=== PATIENT | female | born 1980 | race Two or more races ===

== ENCOUNTER 2024-05-29 08:02 | Emergency (ER) | payer MEDICAID, SELFPAY ==
--- NOTE | 2024-05-29 08:04 | PD.EDURI ---
Upper Respiratory Inf. RME/HPI General Chief Complaint: Flu Like Symptoms Stated Complaint: COUGH, CONGESTION, N/V, DIARRHEA Time Seen by Provider: 05/29/24 08:04 Arrival date/time: 05/29/24 08:02 44-year old female presents emergency department complains of cough, congestion, body aches and fever as well as nausea vomiting diarrhea symptoms ongoing for last few days patient has multiple sick contacts who tested positive for flu Limitations: no limitations Related Data Home Medications ?Medication ?Instructions ?Recorded ?Confirmed Vitamin * 1 tab PO QDAY #0 tabs 06/02/17 08/18/17 docusate sodium 100 mg capsule 100 mg PO QDAY 08/18/17 08/18/17 (Colace) ferrous sulfate 325 mg (65 mg 325 mg PO BID 08/18/17 08/18/17 iron) tablet (iron) ranitidine HCl 150 mg tablet 150 mg PO QDAY 08/18/17 08/18/17 (Zantac) Previous Rx's ?Medication ?Instructions ?Recorded simethicone 80 mg chewable tablet 80 mg PO QDAY PRN abdominal 08/27/17 distention #20 tabs acetaminophen 650 mg 650 mg PO Q8H #60 tabs 06/21/18 tablet,extended release albuterol sulfate 90 mcg/actuation 2 puff inhalation Q4H PRN 06/21/18 aerosol inhaler shortness of breath or wheezing #18 grams ibuprofen 600 mg tablet 600 mg PO Q6H #60 tabs 06/21/18 ondansetron 4 mg disintegrating 4 mg PO Q6H #14 tabs 06/21/18 tablet promethazine-DM 6.25 mg-15 mg/5 mL 10 ml PO Q6H PRN cough #240 mL 06/21/18 oral syrup azithromycin 500 mg tablet See Rx Instructions PO .COMPLEX #6 10/22/21 tabs ibuprofen 800 mg tablet 800 mg PO TID PRN pain #30 tabs 10/22/21 benzonatate 100 mg capsule 100 mg PO TID #14 caps 05/29/24 ibuprofen 800 mg tablet 800 mg PO TID PRN pain #30 tabs 05/29/24 loperamide 2 mg capsule (Imodium 2 mg PO Q6H PRN loose stool #14 05/29/24 A-D) caps ondansetron 4 mg disintegrating 4 mg PO Q8H PRN nausea and 05/29/24 tablet vomiting #10 tabs oseltamivir 75 mg capsule (Tamiflu) 75 mg PO BID 5 days #10 caps 05/29/24 Allergies Allergy/AdvReac Type Severity Reaction Status Date / Time No Known Allergies Allergy Verified 10/22/21 10:54 Review of Systems Review of Systems Systems Reviewed: All systems reviewed, normal except as documented Constitutional Constitutional: Reports system reviewed and no additional complaints, except as documented, Reports body ache(s), Reports fatigue, Reports fever(s) and Reports headache(s) Eyes Eyes: Reports system reviewed and no additional complaints, except as documented and Denies blurry vision ENT Ears, Nose, Mouth, and Throat: Reports system reviewed and no additional complaints, except as documented, Reports headache(s), Reports nasal congestion and Reports nasal discharge Cardiovascular Cardiovascular: Reports system reviewed and no additional complaints, except as documented, Denies chest pain and Denies dyspnea Respiratory Respiratory: Reports system reviewed and no additional complaints, except as documented, Reports chest congestion, Reports cough and Denies dyspnea Gastrointestinal Gastrointestinal: Reports system reviewed and no additional complaints, except as documented, Denies abdominal pain, Reports loose stools and Reports vomiting Integumentary/Breasts Skin/Breast: Reports system reviewed and no additional complaints, except as documented and Denies rash Neurologic Neurologic: Reports system reviewed and no additional complaints, except as documented, Reports as per HPI and Reports headache(s) Endocrine Endocrine: Reports fatigue Past Medical History Past Medical History NEUROLOGIC: Negative Neurological Disorders or Seizures CARDIAC: Negative Cardiac Disorders or Congestive Heart Failure RESPIRATORY: Negative Chronic Obstructive Pulmonary Disease (COPD) or Bronchitis GASTROINTESTINAL: Positive Gall Bladder Disease; Negative Gastrointestinal Disorders, Hepatitis or Colorectal Cancer GENITOURINARY: Negative Genitourinary Disorders, Renal Disease or Prostate Cancer REPRODUCTIVE: Negative Breast Cancer or Testicular Cancer MUSCULOSKELETAL: Negative Musculoskeletal Disorders or Bone Cancer ENDOCRINE: Negative Endocrine Disorders, Diabetes Mellitus Type 1 or Diabetes Mellitus Type 2 HEMATOLOGIC: Positive Blood Disorders and Anemia; Negative Leukemia, Hemophilia, Thalassemia, Sickle Cell Disease or Clotting Problems OTHER HISTORY: Positive Blood Transfusions and Chicken Pox; Negative Autoimmune Disease, Blood Transfusion Reaction, Anesthesia Reactions, Organ Transplant, Chemotherapy, Radiation Therapy, Hyperbaric Therapy, MRSA, VRSA, Vancomycin-Resistant Enterococci, Human Immunodeficiency Virus (HIV), Measles, Mumps, Rubella (Armenian Measles), Pertussis, Clostridium Difficile, Breast Cancer, Cervical Cancer, Colorectal Cancer, Lung Cancer, Ovarian Cancer, Prostate Cancer or Testicular Cancer Family History FAMILY HISTORY: Positive Family Cardiac Disorders (PATERNAL FAMILY) and Family Cancer (MATERNAL GRANDMOTHER AND AUNT, UTERINE AND STOMACH CANCER); Negative Family Psychiatric Problems, Family Respiratory Disorders, Family Gastrointestinal Problems, Family Surgery or Family Anesthesia Reaction Surgical History SURGICAL: Positive Abdominal Surgery and Section (X2 2013, 2016); Negative Cardiac Surgery, Endocrine Surgery, Ear Surgery, Nephrectomy, Joint Replacement, Neurologic Surgery, Mastectomy or Organ Transplant Social History SMOKING STATUS: Never smoker SECOND HAND EXPOSURE: No ED Exam General Limitations: Present no limitations General appearance: Present alert and in no apparent distress Head Head exam: Present atraumatic, normocephalic and normal inspection Eye Eye exam: Present normal appearance, PERRL and EOMI; Absent conjunctival injection ENT ENT exam: Present normal exam, normal oropharynx and mucous membranes moist Neck Neck exam: Present normal inspection, full ROM and trachea midline Chest Chest inspection: Present normal inspection and symmetric chest wall rise Respiratory Respiratory exam: Present normal lung sounds bilaterally Cardiovascular Cardiovascular exam: Present regular rate, normal rhythm and normal heart sounds Abdominal Exam Abdominal exam: Present soft and normal bowel sounds; Absent distention, tenderness, guarding, rebound, rigidity, Saba's sign or tenderness at McBurney's Point Abdominal tenderness: Absent RUQ or RLQ Extremities Exam Extremities exam: Present normal inspection and full ROM Back Exam Back exam: Present normal inspection and full ROM Neurological Exam Neurological exam: Present alert, oriented X3 and CN II-XII intact Psychiatric Psychiatric exam: Present normal affect and normal mood Skin Skin exam: Present warm, dry, intact and normal color Course Quality Measures none Orders Category Date Time Status Bedside Influenza A&B Antigen Test NOW Care 05/29/24 08:06 Completed Ibuprofen Tab [Motrin Tab] Med 05/29/24 08:11 Discontinued 800 mg PO X1 ONE Loperamide [Imodium] Med 05/29/24 08:05 Discontinued 4 mg PO X1 ONE Ondansetron Odt [Zofran Odt] Med 05/29/24 08:05 Discontinued 4 mg PO X1 ONE Vital Signs Vital signs: Vital Signs Temperature 101.5 F H 05/29/24 08:11 Pulse Rate 116 H 05/29/24 08:11 Respiratory Rate 20 05/29/24 08:11 Blood Pressure 108/77 05/29/24 08:11 Pulse Oximetry (%) 96 05/29/24 08:11 Oxygen Delivery Method Room Air 05/29/24 08:11 O2 saturation 98% room air within normal Upper Respiratory Infection MDM Narrative MDM Narrative:: 44-year old female presents emergency department complains of cough, congestion, body aches and fever as well as nausea vomiting diarrhea symptoms ongoing for last few days patient has multiple sick contacts who tested positive for flu On exam patient does not appear ill or toxic patient reports no significant medical problems Patient symptoms highly consistent with viral illness I suspect patient has flu Patient checked for influenza Patient tested positive for influenza Patient discharged home in no distress to follow-up with primary care doctor in the next 24 to 48 hours and for any worsening symptoms to return to the ER immediately Patient data External records reviewed:: [facility] previous records Clinical information provided by:: patient Social determinants that could affect healthcare access:: none Patient has the following chronic illnesses:: See history How is presenting disease/condition affected by chronic disease/condition?: uneffected by Evaluation data The following diagnostics were reviewed and interpreted by me:: lab results Lab and/or radiology exams considered but not ordered:: Lab obtain Interpretation Summary: Reviewed by me Medications / Prescriptions Medications or Prescriptions considered but not ordered:: Given Medication administrations:: Medication Administration History Discontinued Medications Ibuprofen (Ibuprofen Tab 400 Mg Tablet) 800 mg PO X1 ONE Stop: 05/29/24 08:12 Last Admin: 05/29/24 08:36 Dose: 800 mg Documented By: XIN Loperamide HCl (Loperamide 2 Mg Capsule) 4 mg PO X1 ONE Stop: 05/29/24 08:06 Last Admin: 05/29/24 08:36 Dose: 4 mg Documented By: XIN Ondansetron HCl (Ondansetron Odt 4 Mg Tabrap) 4 mg PO X1 ONE; Protocol Stop: 05/29/24 08:06 Last Admin: 05/29/24 08:36 Dose: 4 mg Documented By: XIN Given Consultations Consultation(s) initiated? (list below): No Diagnosis Upper Respiratory Differential Diagnosis: upper respiratory infection, sinusitis, viral infection, bronchitis and pharyngitis Most likely diagnosis given after review of the tests above:: Influenza Admission Indicated Admission indicated?: not indicated Admission Request Was there a request for admission?: No Disposition Plan Disposition Plan: Discharge Discharge Attestation Discharge Attestation: The patient and all family members were given an opportunity to ask questions and understood the discharge instructions. Discharge instructions specifically effects, indications for sooner follow up or return to the emergency department, and the expected course of current diagnosis. Patient condition: Stable Discharge Plan Plan Patient Disposition: HOME (Self Care) Disposition Comment: Stable Prescriptions/Referrals Prescriptions/Med Rec: New loperamide [Imodium A-D] 2 mg capsule 2 mg PO Q6H PRN (Reason: loose stool) Qty: 14 0RF ibuprofen 800 mg tablet 800 mg PO TID PRN (Reason: pain) Qty: 30 0RF benzonatate 100 mg capsule 100 mg PO TID Qty: 14 0RF ondansetron 4 mg tablet,disintegrating 4 mg PO Q8H PRN (Reason: nausea and vomiting) Qty: 10 0RF oseltamivir [Tamiflu] 75 mg capsule 75 mg PO BID 5 Days Qty: 10 0RF No Action Vitamin * 1 EACH tablet 1 tab PO QDAY Qty: 0 ferrous sulfate [iron] 325 mg (65 mg iron) Tablet 325 mg PO BID ranitidine HCl [Zantac] 150 mg Tablet 150 mg PO QDAY docusate sodium [Colace] 100 mg Capsule 100 mg PO QDAY simethicone 80 mg tablet,chewable 80 mg PO QDAY PRN (Reason: abdominal distention) Qty: 20 0RF promethazine-DM 6.25-15 mg/5 mL syrup 10 ml PO Q6H PRN (Reason: cough) Qty: 240 0RF acetaminophen 650 mg tablet extended release 650 mg PO Q8H Qty: 60 0RF Rx Instructions: swallow whole; do not chew/break/dissolve/open ibuprofen 600 mg tablet 600 mg PO Q6H Qty: 60 0RF albuterol sulfate 90 mcg/actuation HFA aerosol inhaler 2 puff INH Q4H PRN (Reason: shortness of breath or wheezing) Qty: 18 0RF Rx Instructions: administer with spacer ondansetron 4 mg tablet,disintegrating 4 mg PO Q6H Qty: 14 0RF ibuprofen 800 mg tablet 800 mg PO TID PRN (Reason: pain) Qty: 30 0RF azithromycin 500 mg tablet See Rx Instructions .ROUTE .COMPLEX Qty: 6 0RF Rx Instructions: take 500 mg today (day 1), then 250 mg for 4 days (days 2-5) Referrals: Alberta Smith, DIRECTOR OF MECHANICAL ENGINEERING [Primary Care Provider] - In 1 week Problem List Clinical Impression: Influenza A, Fever Patient/Caregiver Discharge Instructions Education Materials: The Flu (Influenza) Additional Instructions: Please follow up with your primary care doctor in the next 24-48hrs for any worsening symptoms return here immediately Print Language: [place] Stand Alone Forms: [facility] Award Info., Patient Portal Info Letter PA/WHEEL AND PINION INSPECTOR Supervising Physician PA/WHEEL AND PINION INSPECTOR Supervising Physician: Dr. appiah
[2024-05-29 08:11] VITALS: BP 108/77; PULSE 116; RESP 20; TEMP 38.6; O2SAT 96; BMI 44.3
[2024-05-29 08:36] VITALS: TEMP 38.6
[2024-05-29] MEDS: ONDANSETRON ODT 4 MG TABRAP PO (08:36)
[2024-05-29] MEDS: IBUPROFEN TAB 400 MG TABLET 800 MG PO (08:36)
[2024-05-29] MEDS: LOPERAMIDE 2 MG CAPSULE 4 MG PO (08:36)
== END 2024-05-29 08:55 | disposition home or self-care (01) ==
PROVIDERS: Emergency Provider Emergency Medicine; PCP Nurse Practitioner Family
DX: J10.1 Influenza due to other identified influenza virus with other respiratory manifestations (principal)
CPT/HCPCS: 87400; 99283; Q0162; A9270

== ENCOUNTER 2024-11-17 14:38 | Emergency (ER) | payer MEDICAID, SELFPAY ==
--- NOTE | 2024-11-17 14:57 | XR_ITS ---
Examination: Thoracic spine 3 views TECHNIQUE: AP lateral coned lateral upper dorsal spine 3 views Date and time: November 17, 2024 1532 hours INDICATIONS: Back pain beginning last night. FINDINGS: No acute thoracic fracture Mild to moderate diffuse thoracic degenerative disc disease IMPRESSION: Mild to moderate diffuse thoracic degenerative disc disease
--- NOTE | 2024-11-17 14:57 | XR_ITS ---
Examination: Ribs, left, with PA chest, 5 views Technique: Chest PA, RIBS AP, RPO, LPO, AP coned lower ribs 5 views Exam date and time: November 17, 2024 1808 hours INDICATIONS: Patient fell last night with injury to the left ribs, left rib pain Findings: Normal heart size No pneumothorax No acute left rib fractures IMPRESSION: No pneumothorax pulmonary contusion or hemothorax No acute left rib fractures
--- NOTE | 2024-11-17 14:58 | EDNOTE_ITS ---
ED Fall Injury RME/HPI General Chief Complaint: Fall Stated Complaint: Fell on skates, hit left ribs on wall Time Seen by Provider: 11/17/24 14:42 Source: patient Arrival date/time: 11/17/24 14:38 44-year-old female with no known medical history presents to the emergency room with a chief complaint of tenderness to her left ribs, mid back, and difficulty taking breaths x 2 days. Patient states she was using skates yesterday and fell hitting the corner of a wall. Mode of arrival: ambulatory Limitations: no limitations Related Data Home Medications ?Medication ?Instructions ?Recorded ?Confirmed Vitamin * 1 tab PO QDAY #0 tabs 08/18/17 docusate sodium 100 mg capsule 100 mg PO QDAY 08/18/17 08/18/17 (Colace) ferrous sulfate 325 mg (65 mg 325 mg PO BID 08/18/17 0 08/18/17 iron) tablet (iron) ranitidine HCl 150 mg tablet 150 mg PO QDAY 08/18/17 0 08/18/17 (Zantac) Previous Rx's ?Medication ?Instructions ?Recorded simethicone 80 mg chewable tablet 80 mg PO QDAY PRN ab dominal 08/27/17 distention #20 tabs acetaminophen 650 mg 650 mg PO Q8H #60 tabs 06/21 tablet,extended release albuterol sulfate 90 mcg/actuation 2 puff inhalation Q 4H PRN 06/21/18 aerosol inhaler shortness of breath or wheez ing #18 grams ibuprofen 600 mg tablet 600 mg PO Q6H #60 tabs 06/21 ondansetron 4 mg disintegrating 4 mg PO Q6H #14 tabs 0 06/21/18 tablet promethazine-DM 6.25 mg-15 mg/5 mL 10 ml PO Q6H PRN co ugh #240 mL 06/21/18 oral syrup azithromycin 500 mg tablet See Rx Instructions PO .COM PLEX #6 10/22/21 tabs ibuprofen 800 mg tablet 800 mg PO TID PRN pain #30 t abs 10/22/21 benzonatate 100 mg capsule 100 mg PO TID #14 caps 05/04 11/24 ibuprofen 800 mg tablet 800 mg PO TID PRN pain #30 t abs 01/27/25 loperamide 2 mg capsule (Imodium 2 mg PO Q6H PRN loose stool #14 05/29/24 A-D) caps ondansetron 4 mg disintegrating 4 mg PO Q8H PRN nausea and 05/29/24 tablet vomiting #10 tabs Allergies Allergy/AdvReac Type Severity Reaction Status Date / Time No Known Allergies Allergy Verified 11/17/24 14:47 Review of Systems Review of Systems Systems Reviewed: All systems reviewed, normal except as documented Constitutional Constitutional: Reports system reviewed and no additional complaints, except as documented, Denies fatigue, Denies fever(s), Denies headache(s) and Denies weakness Eyes Eyes: Reports system reviewed and no additional complaints, except as documented, Denies blurry vision and Denies change in vision ENT Ears, Nose, Mouth, and Throat: Reports system reviewed and no additional complaints, except as documented, Denies otalgia, Denies headache(s), Denies nasal congestion, Denies throat swelling and Denies vertigo Cardiovascular Cardiovascular: Reports system reviewed and no additional complaints, except as documented, Denies chest pain, Denies dyspnea and Denies dyspnea on exertion Respiratory Respiratory: Reports system reviewed and no additional complaints, except as documented, Denies chest congestion, Denies cough, Denies dyspnea, Denies dyspnea on exertion and Denies wheezing Gastrointestinal Gastrointestinal: Reports system reviewed and no additional complaints, except as documented, Denies abdominal pain, Denies cramping, Denies nausea and Denies vomiting Genitourinary Genitourinary: Reports system reviewed and no additional complaints, except as documented Musculoskeletal Musculoskeletal: Reports system reviewed and no additional complaints, except as documented and Denies back pain Integumentary/Breasts Skin/Breast: Reports system reviewed and no additional complaints, except as documented and Denies wounds Neurologic Neurologic: Reports system reviewed and no additional complaints, except as documented, Denies confusion, Denies headache(s), Denies lack of coordination, Denies vertigo and Denies weakness Psychiatric Psychiatric: Reports system reviewed and no additional complaints, except as documented, Denies anxiety, Denies confusion, Denies depression, Denies paranoia, Denies suicidal ideation and Denies tactile hallucinations Endocrine Endocrine: Reports system reviewed and no additional complaints, except as documented and Denies fatigue Hematologic/Lymphatic Hematologic/Lymphatic: Reports system reviewed and no additional complaints, except as documented and Denies lymphadenopathy Allergic/Immunologic Allergic/Immunologic: Reports system reviewed and no additional complaints, except as documented, Denies throat swelling, Denies urticaria and Denies wheezing Past Medical History Past Medical History NEUROLOGIC: Negative Neurological Disorders or Seizures CARDIAC: Negative Cardiac Disorders or Congestive Heart Failure RESPIRATORY: Negative Chronic Obstructive Pulmonary Disease (COPD) or Bronchitis GASTROINTESTINAL: Positive Gall Bladder Disease; Negative Gastrointestinal Disorders, Hepatitis or Colorectal Cancer GENITOURINARY: Negative Genitourinary Disorders, Renal Disease or Prostate Cancer REPRODUCTIVE: Negative Breast Cancer or Testicular Cancer MUSCULOSKELETAL: Negative Musculoskeletal Disorders or Bone Cancer ENDOCRINE: Negative Endocrine Disorders, Diabetes Mellitus Type 1 or Diabetes Mellitus Type 2 HEMATOLOGIC: Positive Blood Disorders and Anemia; Negative Leukemia, Hemophilia, Thalassemia, Sickle Cell Disease or Clotting Problems OTHER HISTORY: Positive Blood Transfusions and Chicken Pox; Negative Autoimmune Disease, Blood Transfusion Reaction, Anesthesia Reactions, Organ Transplant, Chemotherapy, Radiation Therapy, Hyperbaric Therapy, MRSA, VRSA, Vancomycin-Resistant Enterococci, Human Immunodeficiency Virus (HIV), Measles, Mumps, Rubella ([place] Measles), Pertussis, Clostridium Difficile, Breast Cancer, Cervical Cancer, Colorectal Cancer, Lung Cancer, Ovarian Cancer, Prostate Cancer or Testicular Cancer Family History FAMILY HISTORY: Positive Family Cardiac Disorders (PATERNAL FAMILY) and Family Cancer (MATERNAL GRANDMOTHER AND AUNT, UTERINE AND STOMACH CANCER); Negative Family Psychiatric Problems, Family Respiratory Disorders, Family Gastrointestinal Problems, Family Surgery or Family Anesthesia Reaction Surgical History SURGICAL: Positive Abdominal Surgery and Section (X2 2013, 2016); Negative Cardiac Surgery, Endocrine Surgery, Ear Surgery, Nephrectomy, Joint Replacement, Neurologic Surgery, Mastectomy or Organ Transplant Social History SMOKING STATUS: Never smoker SECOND HAND EXPOSURE: No ED Exam General Limitations: Present no limitations General appearance: Present alert and in no apparent distress Head Head exam: Present atraumatic Eye Eye exam: Present normal appearance, PERRL and EOMI ENT ENT exam: Present normal exam, normal oropharynx and mucous membranes moist Neck Neck exam: Present normal inspection, full ROM and trachea midline Chest Chest inspection: Present normal inspection, symmetric chest wall rise and tenderness Expanded Chest Exam Trauma: Absent crepitus, laceration, abrasion, ecchymosis, wound, penetrating wound or surgical incision Breast: left: tenderness Respiratory Respiratory exam: Present normal lung sounds bilaterally; Absent respiratory distress, wheezes, stridor, accessory muscle use or prolonged expiratory phase Cardiovascular Cardiovascular exam: Present regular rate, normal rhythm and normal heart sounds Abdominal Exam Abdominal exam: Present soft and normal bowel sounds Extremities Exam Extremities exam: Present normal inspection and full ROM Back Exam Back exam: Present normal inspection, full ROM and vertebral tenderness Neurological Exam Neurological exam: Present alert, oriented X3 and CN II-XII intact Psychiatric Psychiatric exam: Present normal affect and normal mood Skin Skin exam: Present warm, dry, intact and normal color Course Quality Measures none Orders Category Date Time Status XR ribs LT min 3V w [id number] Stat Exams 11/17/24 14:57 Completed XR thoracic spine 3V Stat Exams 11/17/24 14:57 Completed Fall MDM Narrative MDM Narrative:: 44-year-old female with no known medical history presents to the emergency room with a chief complaint of tenderness to her left ribs, mid back, and difficulty taking breaths x 2 days. Patient states she was using skates yesterday and fell hitting the corner of a wall. Patient data External records reviewed:: [facility] previous records Clinical information provided by:: patient Social determinants that could affect healthcare access:: none Patient has the following chronic illnesses:: No chronic illness How is presenting disease/condition affected by chronic disease/condition?: no chronic disease Evaluation data The following diagnostics were reviewed and interpreted by me:: lab results and radiology exam(s) Lab and/or radiology exams considered but not ordered:: Labs and radiology exams considered and ordered Interpretation Summary: Rib [id number]: Normal heart size No pneumothorax No acute left rib fractures IMPRESSION: No pneumothorax pulmonary contusion or hemothorax No acute left rib fractures Thoracic spine-FINDINGS: No acute thoracic fracture Mild to moderate diffuse thoracic degenerative disc disease IMPRESSION: Mild to moderate diffuse thoracic degenerative disc disease Medications / Prescriptions Medications or Prescriptions considered but not ordered:: No medication given Medication administrations:: No medication given Consultations Consultation(s) initiated? (list below): No Diagnosis Fall Differential Diagnosis: other (Rib contusion/rib fracture/pneumothorax/hemothorax/thoracic fracture) Most likely diagnosis given after review of the tests above:: Rib contusion Admission Indicated Admission indicated?: not indicated Admission Request Was there a request for admission?: No Disposition Plan Disposition Plan: Discharge Discharge Attestation Discharge Attestation: The patient and all family members were given an opportunity to ask questions and understood the discharge instructions. Discharge instructions specifically effects, indications for sooner follow up or return to the emergency department, and the expected course of current diagnosis. Patient condition: Stable Discharge Plan Plan Patient Disposition: HOME (Self Care) Discharge Disposition comment: Stable Prescriptions/Referrals Prescriptions/Med Rec: No Action Vitamin * 1 EACH tablet 1 tab PO QDAY Qty: 0 ferrous sulfate [iron] 325 mg (65 mg iron) Tablet 325 mg PO BID ranitidine HCl [Zantac] 150 mg Tablet 150 mg PO QDAY docusate sodium [Colace] 100 mg Capsule 100 mg PO QDAY simethicone 80 mg tablet,chewable 80 mg PO QDAY PRN (Reason: abdominal distention) Qty: 20 0RF promethazine-DM 6.25-15 mg/5 mL syrup 10 ml PO Q6H PRN (Reason: cough) Qty: 240 0RF acetaminophen 650 mg tablet extended release 650 mg PO Q8H Qty: 60 0RF Rx Instructions: swallow whole; do not chew/break/dissolve/open ibuprofen 600 mg tablet 600 mg PO Q6H Qty: 60 0RF albuterol sulfate 90 mcg/actuation HFA aerosol inhaler 2 puff INH Q4H PRN (Reason: shortness of breath or wheezing) Qty: 18 0RF Rx Instructions: administer with spacer ondansetron 4 mg tablet,disintegrating 4 mg PO Q6H Qty: 14 0RF ibuprofen 800 mg tablet 800 mg PO TID PRN (Reason: pain) Qty: 30 0RF azithromycin 500 mg tablet See Rx Instructions .ROUTE .COMPLEX Qty: 6 0RF Rx Instructions: take 500 mg today (day 1), then 250 mg for 4 days (days 2-5) loperamide [Imodium A-D] 2 mg capsule 2 mg PO Q6H PRN (Reason: loose stool) Qty: 14 0RF ibuprofen 800 mg tablet 800 mg PO TID PRN (Reason: pain) Qty: 30 0RF benzonatate 100 mg capsule 100 mg PO TID Qty: 14 0RF ondansetron 4 mg tablet,disintegrating 4 mg PO Q8H PRN (Reason: nausea and vomiting) Qty: 10 0RF Problem List Clinical Impression: Contusion of rib on left side Patient/Caregiver Discharge Instructions Additional Instructions: Please follow-up with your primary care provider in the next 24 to 48 hours X-rays of your ribs, chest, back were negative for any acute fracture or dislocations For any evidence of worsening signs or symptoms return to the emergency room immediately Print Language: Greenlandic Stand Alone Forms: Raven Award Info., Patient Portal Info Letter PA/DAIRY [employer]IES SALES REPRESENTATIVE Supervising Physician PA/DAIRY SUPPLIES SALES REPRESENTATIVE Supervising Physician: Dr. Crain
== END 2024-11-17 16:22 | disposition home or self-care (01) ==
LOC: SERX 16:12
PROVIDERS: Emergency Provider Family Medicine
DX: S20.212A Contusion of left front wall of thorax, initial encounter (principal); W22.01XA Walked into wall, initial encounter; M51.34 Other intervertebral disc degeneration, thoracic region
CPT/HCPCS: 71101; 72072; 99283